=== PATIENT | female | born 1990 ===

== ENCOUNTER 2020-09-01 04:33 | Day surgery (SDC) | payer OTHER ==
[2020-08-31 15:58] VITALS: BMI 36.4
[2020-09-01 06:37] LABS: BASO % 0.5 % (0-2.0); EOS % 2.9 % (0-4.5); HEMATOCRIT 40.4 % (32.4-45.2); HEMOGLOBIN 13.5 GM/dL (10.7-15.3); LYMPH % 20.3 % (8-40); MCH 26.9 pg (25.7-33.7); MCHC 33.4 g/dl (32.0-36.0); MEAN CELL VOLUME 80.6 fl (80-96); MEAN PLT VOLUME 8.9 fl (7.5-11.1); MONO % 7.2 % (3.8-10.2); NEUT % 69.1 % (42.8-82.8); PLATELET COUNT 296 K/MM3 (134-434); RBC 5.02 M/mm3 (3.60-5.2); WHITE BLOOD COUNT 10.5 K/mm3 (4.0-10.0)
[2020-09-01] MEDS ORDERED: VASOPRESSIN 20 UNITS/ML VIAL IV ONE (08:27)
[2020-09-01] MEDS ORDERED: ACETAMINOPHEN INJECTION 100 ML IVPB ONE (08:46)
[2020-09-01] MEDS ORDERED: IBUPROFEN 800 MG/8 ML IJ IVPB PRN (09:38)
[2020-09-01] MEDS ORDERED: INDOMETHACIN 50 MG CAPSULE PO ONE (10:00)
[2020-09-01 13:23] VITALS: BP 125/74; PULSE 80; TEMP 97.8
== END 2020-09-01 13:40 | disposition home or self-care (01) ==
LOC: JASU-SURG 04:33
PROVIDERS: ATTEND Obstetrics & Gynecology Maternal & Fetal Medicine
PROC: 0UVC7ZZ Restriction of Cervix, Via Natural or Artificial Opening (ICD-10-PCS; principal; 2020-09-01 07:30)
DX: O34.31 Maternal care for cervical incompetence, first trimester (principal); Z3A.12 12 weeks gestation of pregnancy
CPT/HCPCS: 36415; 85025; 86850; 86900; 86901; 94760; J0131